=== PATIENT | male | born 1965 | race Caucasian/White ===

== ENCOUNTER 2022-07-01 09:48 | Emergency (ER) | payer OTHER, BC ==
[2022-07-01] MEDS ORDERED: Acetaminophen 325 MG Tab PO ONE (10:16)
== END 2022-07-01 11:31 | disposition home or self-care (01) ==
LOC: VM.ED 09:48
DX: S92.424B Nondisplaced fracture of distal phalanx of right great toe, initial encounter for open fracture (principal); Z86.16 Personal history of COVID-19; W20.8XXA Other cause of strike by thrown, projected or falling object, initial encounter; Y99.0 Civilian activity done for income or pay
CPT/HCPCS: 73660-T5; 99283; A9270-GY